=== PATIENT | male | born 1970 | race Caucasian/White ===

== ENCOUNTER 2017-01-14 08:01 | Emergency (ER) | payer SELFPAY, OTHER ==
[2017-01-14] MEDS ORDERED: diphenhydrAMINE 50 MG/ML VIAL ONE (08:44)
[2017-01-14] MEDS ORDERED: Ketorolac Tromethamine 30 MG/ML VIAL ONE (08:44)
[2017-01-14] MEDS ORDERED: Prochlorperazine 10 MG/2 ML VIAL ONE (09:21)
== END 2017-01-14 10:20 | disposition home or self-care (01) ==
LOC: SCSER 08:01
DX: J30.2 Other seasonal allergic rhinitis (principal); R51 Headache; I10 Essential (primary) hypertension; F17.210 Nicotine dependence, cigarettes, uncomplicated
CPT/HCPCS: 96361; 96374; 96375; 99406; J0780; J1200; J1885

== ENCOUNTER 2019-11-03 05:56 | Day surgery (SDC) | payer OTHER ==
[2019-10-30 12:57] VITALS: BMI 27.6
[2019-11-03] MEDS ORDERED: Ketorolac Tromethamine 30 MG/ML VIAL ONE (06:06)
[2019-11-03] MEDS ORDERED: Acetaminophen 500 MG TAB ONE (06:07)
[2019-11-03] MEDS ORDERED: Bupivacaine 0.25% HCL 30 ML VIAL ONE (07:25)
[2019-11-03] MEDS ORDERED: Lidocaine 1% w/Epinephrine 1:100K 20 ML VIAL ONE (07:25)
[2019-11-03] MEDS ORDERED: Midazolam HCl 2 mg/2 ml Vial ONE (07:52)
[2019-11-03] MEDS ORDERED: Fentanyl 250 MCG/5 ML VIAL ONE (08:01)
[2019-11-03] MEDS ORDERED: PROPOFOL 200 MG/20 ML VIAL ONE (10:06)
[2019-11-03] MEDS ORDERED: Rocuronium Bromide 10 MG/ML (10ML VIAL) ONE (10:06)
[2019-11-03] MEDS ORDERED: Dexamethasone 20 MG/5 ML VIAL ONE (10:06)
[2019-11-03] MEDS ORDERED: PHENYLEPHRINE-NS 100 MCG/ML 10 ML SYRINGE ONE (10:06)
[2019-11-03] MEDS ORDERED: Lidocaine 1% PF 5 ML VIAL ONE (10:06)
[2019-11-03] MEDS ORDERED: Ondansetron PF 4 MG/2 ML Vial ONE (10:06)
[2019-11-03] MEDS ORDERED: Glycopyrrolate 0.2 MG/ML 5 ML SYRINGE ONE (10:06)
[2019-11-03] MEDS ORDERED: EPHEDRINE 25 MG/5 ML SYRINGE ONE (10:06)
--- NOTE | 2019-11-03 13:33 | PDOC.OP ---
Operative Note - Operative Note Operative Note: PROCEDURE: Repair of epigastric hernia SURGEON: Portia Patel M.D. DATE: 11/03/2019 PREOPERATIVE DIAGNOSIS: Epigastric hernia, incarcerated POSTOPERATIVE DIAGNOSIS: Epigastric hernia, incarcerated HISTORY: Patient with symptomatic epigastric hernia for which he desires repair. FINDINGS: Incarcerated epigastric hernia containing preperitoneal fat only. Small fascial defect repaired primarily. PROCEDURE IN DETAIL: After informed consent was obtained and appropriate preoperative antibiotics administered the patient was taken to the operating room where he was placed in supine position and general anesthesia was administered. He was prepped and draped in the standard sterile fashion and local anesthesia was infused to the skin and subcutaneous tissues overlying the epigastric hernia. A vertical incision was made and dissection carried down to the epigastric hernia which was dissected free circumferentially to the small fascial defect through which it was protruding. Even after clearing all adhesions to the surrounding tissue the hernia defect was only partially reducible due to fibrosis of the protruding preperitoneal fat. The fibrotic portion of the preperitoneal fat was excised and discarded. Hemostasis of the remaining preperitoneal fat was confirmed and this was reduced into the preperitoneal space. The fascial defect was only about 1-1/2 cm in size and was closed with interrupted [id number] Ethibond sutures with excellent technical result. Additional local anesthesia was infused to the muscle and subcutaneous tissue for postoperative pain control. The wound was irrigated and hemostasis verified. The subcutaneous tissues were reapproximated with 3-0 Monocryl suture and the skin was closed with 4-0 Monocryl suture. Dermabond dressings were placed and the patient was extubated and taken to recovery in good condition. Estimated blood loss was minimal. There were no complications. There were no specimens.
== END 2019-11-03 10:15 | disposition home or self-care (01) ==
LOC: SDC 05:56
PROVIDERS: ATTEND Surgery
PROC: 0WQF0ZZ Repair Abdominal Wall, Open Approach (ICD-10-PCS; principal; 2019-11-03)
DX: K43.6 Other and unspecified ventral hernia with obstruction, without gangrene (principal)
CPT/HCPCS: J0690; J1100; J1885; J2250; J2405; J2704; J3010; S0020